=== PATIENT | male | born 1985 | race Caucasian/White ===

== ENCOUNTER 2018-08-04 13:48 | Emergency (ER) | payer OTHER ==
[2018-08-04] MEDS ORDERED: Morphine 4 MG/ML VIAL ONE (15:11)
[2018-08-04] MEDS ORDERED: Morphine 2 MG/ML SYRINGE ONE (15:11)
== END 2018-08-04 16:39 | disposition home or self-care (01) ==
LOC: ERS 13:48
DX: M51.36 Other intervertebral disc degeneration, lumbar region (principal); Z79.899 Other long term (current) drug therapy
CPT/HCPCS: 96372; J2270